=== PATIENT | female | born 1950 | race Caucasian/White ===

== ENCOUNTER → 2017-05-22 | Outpatient (CLI) | payer OTHER | LOC: FIMAGING 09:04 | DX: Z12.31 Encounter for screening mammogram for malignant neoplasm of breast (principal) | CPT/HCPCS: G0202 ==

== ENCOUNTER → 2018-01-22 | Outpatient (CLI) | payer OTHER | LOC: BHFA 15:00 | PROVIDERS: ATTEND Internal Medicine Cardiovascular Disease | DX: I48.91 Unspecified atrial fibrillation (principal); E78.5 Hyperlipidemia, unspecified; Z95.0 Presence of cardiac pacemaker; Z79.899 Other long term (current) drug therapy ==

== ENCOUNTER 2018-07-08 13:25 | Observation (INO) | payer OTHER ==
[2018-07-08] MEDS ORDERED: IOHEXOL 350mgI/ML (OMNIPAQUE) 150 ML BTL IV ONE (13:37)
--- NOTE | 2018-07-08 13:49 | EDPHY ---
H & P Stated Complaint: L arm numbness/L facial numbness upon waking up at 6am Time Seen by Provider: 07/08/18 13:36 HPI/ROS: CHIEF COMPLAINT: Left arm numbness, chest pressure HISTORY OF PRESENT ILLNESS: 68-year-old female with atrial fibrillation on Eliquis presents with left-sided numbness and chest pressure. She awoke at 6: 00 a.m. this morning with numbness in the left upper extremity. She stood up and went outside. She then had an episode of diaphoresis, associated with a tingling sensation down her left arm and in her left face. Her leg was not involved. In mid morning, she also had an episode of chest pressure of unknown duration, now resolved. Currently, she has numbness left side of mouth and left hand. No weakness. No prior history of TIA or CVA. REVIEW OF SYSTEMS: complete 10 point ROS reviewed and is negative except for the noted elements in the HPI Source: Patient - Personal History Current Tetanus Diphtheria and Acellular Pertussis (TDAP): Yes - Medical/Surgical History Hx Asthma: No Hx Chronic Respiratory Disease: No Hx Diabetes: No Hx Cardiac Disease: Yes Hx Renal Disease: No Hx Cirrhosis: No Hx Alcoholism: No Hx HIV/AIDS: No Hx Splenectomy or Spleen Trauma: No Other PMH: A-FIB, pacemaker - Social History Smoking Status: Never smoked Alcohol Use: Sober Drug Use: None Additional Social History: - Physical Exam Exam: General Appearance: Alert, pleasant and talkative Eyes: Pupils equal and round, no conjunctival pallor or injection ENT, Mouth: Mucous membranes moist Neck: Normal inspection Respiratory: Lungs are clear to auscultation Cardiovascular: Regular rate and rhythm Gastrointestinal: Abdomen is soft and nontender Neurological: Alert, oriented x3, cranial nerves II through XII intact, motor 5 /5, sensory intact to light touch Skin: Warm and dry Extremities: Nontender, no pedal edema Psychiatric: Mood and affect normal Constitutional: Initial Vital Signs Temperature (C) 36.8 C 07/08/18 13:36 Heart Rate 80 07/08/18 13:36 Respiratory Rate 20 07/08/18 13:36 Blood Pressure 185/95 H 07/08/18 13:36 O2 Sat (%) 96 07/08/18 13:36 O2 Delivery Mode Room Air Allergies/Adverse Reactions: amoxicillin [Amoxicillin] Allergy (Mild, Verified 06/28/10 09:57) Rash NUTS Allergy (Intermediate, Uncoded 06/28/10 09:57) Hives HAYFEVER Allergy (Mild, Uncoded 06/28/10 09:57) SNEEZING Home Medications: Medication Instructions Recorded Apixaban [Eliquis] 5 mg PO BID 07/08/18 Cholecalciferol (Vitamin D3) 5,000 unit PO DAILY 07/08/18 [Vitamin D3] Omeprazole 40 mg PO DAILY 07/08/18 Rosuvastatin Calcium [Crestor 40mg 40 mg PO HS 07/08/18 (*)] Sotalol HCl [Sotalol] 80 mg PO BID 07/08/18 Medical Decision Making - Diagnostics EKG Interpretation: EKG interpreted by me reveals an AV dual paced rhythm, rate 82. Interpretation: Abnormal EKG Imaging Results: Imaging Impressions Head CT 07/08/18 13:35 Impression: 1. Negative. No acute intracranial hemorrhage or evidence of acute cortical ischemia. 2. Mild chronic right maxillary sinus disease. Findings discussed with Emergency Department physician, Dr. Heidi Garcia on July 08, 2018 at 1401 hours. Head CTA 07/08/18 13:35 Impression: Normal intravenous circulation. No evidence of embolic disease or aneurysm. CT Angiogram Neck: The cervicothoracic aorta is normal caliber and gives rise to normal four-vessel neck anatomy. Bilateral common carotid arteries, carotid bulbs, internal and external carotid arteries are all widely patent. No plaque, flow-limiting stenosis, dissection, or occlusion. Bilateral vertebral arteries are widely patent. The dominant right vertebral artery is the primary feeding vessel to the basilar artery and posterior circulation. The small caliber left vertebral artery tapers into the posterior inferior cerebellar artery. CT Neck:The lung apices are clear except for mild diffuse peribronchial thickening. No enlarged lymph node or neck mass. Moderate multilevel degenerative disk and facet arthropathy is worse at the C4-C5 and C5-C6 levels. A left anterior chest wall pacemaker is in place. No stenosis of the left brachiocephalic vein. Impression: 1. Widely patent carotid and vertebral arteries. 2. No lymphadenopathy, mass, or acute process. Measurement of carotid stenosis is based on the residual internal carotid diameter with [place] Symptomatic Carotid Endarterectomy Trial (NASCET) based stenosis levels. Findings discussed with Emergency Department physician, Heidi Garcia on 2018, 14:22. Neck CTA 07/08/18 13:35 Impression: Normal intravenous circulation. No evidence of embolic disease or aneurysm. CT Angiogram Neck: The cervicothoracic aorta is normal caliber and gives rise to normal four-vessel neck anatomy. Bilateral common carotid arteries, carotid bulbs, internal and external carotid arteries are all widely patent. No plaque, flow-limiting stenosis, dissection, or occlusion. Bilateral vertebral arteries are widely patent. The dominant right vertebral artery is the primary feeding vessel to the basilar artery and posterior circulation. The small caliber left vertebral artery tapers into the posterior inferior cerebellar artery. CT Neck:The lung apices are clear except for mild diffuse peribronchial thickening. No enlarged lymph node or neck mass. Moderate multilevel degenerative disk and facet arthropathy is worse at the C4-C5 and C5-C6 levels. A left anterior chest wall pacemaker is in place. No stenosis of the left brachiocephalic vein. Impression: 1. Widely patent carotid and vertebral arteries. 2. No lymphadenopathy, mass, or acute process. Measurement of carotid stenosis is based on the residual internal carotid diameter with [place] Symptomatic Carotid Endarterectomy Trial (NASCET) based stenosis levels. Findings discussed with Emergency Department physician, Heidi Garcia on 2018, 14:22. Imaging: Discussed imaging studies w/ supervisor cereal Radiologist ED Course/Re-evaluation: This patient presents with left-sided paresthesias, concerning for CVA. Onset of symptoms at 0600 and she is on Eliquis. NIH score 1. She is not an IV tPA candidate. She was sent to CT for CT/CTA of the head and neck. CT/CTA negative and results discussed with the patient. She continues to have left- sided paresthesias. Repeat neurologic exam is unchanged. She will need to be admitted for further evaluation of possible CVA/TIA. Pt unable to have an MRI because she has a pacemaker that is not MRI compatible. She also had an episode of cp this am, EKG paced rhythm, initial troponin normal, will need serial troponins to evaluate for possible acute coronary syndrome. The hospitalist service was consulted for admission. Differential Diagnosis: Altered mental status including but not limited to hypoglycemia, infectious process, electrolyte abnormality, head injury, CVA, and intoxicants. - Data Points Laboratory Results: Laboratory Results 07/08/18 13:35 07/08/18 13:35 07/08/18 07/08/18 07/08/18 13:44 13:41 13:35 WBC RBC Hgb POC Hgb 16.0 gm/dL gm/dL (12.6-16.3) Hct POC Hct 47 % % (38-47) MCV MCH MCHC RDW Plt Count MPV Neut % (Auto) Lymph % (Auto) [place] % (Auto) Eos % (Auto) Baso % (Auto) Nucleat RBC Rel Count Absolute Neuts (auto) Absolute Lymphs (auto) Absolute Monos (auto) Absolute Eos (auto) Absolute Basos (auto) Absolute Nucleated RBC Immature Gran % Immature Gran # POC Sodium 144 mEq/L mEq/L (135-145) Sodium 141 mEq/L mEq/L (135-145) POC Potassium 3.7 mEq/L mEq/L (3.3-5.0) Potassium 3.9 mEq/L mEq/L (3.5-5.2) POC Chloride 104 mEq/L mEq/L (97-110) Chloride 106 mEq/L mEq/L (97-110) Carbon Dioxide 25 mEq/l mEq/l (22-31) POC Total CO2 27 mEq/L mEq/L (22-31) Anion Gap 10 mEq/L mEq/L (6-14) POC BUN 10 mg/dL mg/dL (7-23) BUN 12 mg/dL mg/dL (7-23) Creatinine 0.6 mg/dL mg/dL (0.6-1.0) POC Creatinine 0.7 mg/dL mg/dL (0.6-1.0) Estimated GFR > 60 Glucose 96 mg/dL mg/dL (70-100) POC Glucose 100 mg/dL mg/dL (70-100) Calcium 9.1 mg/dL mg/dL (8.5-10.4) Total Bilirubin 0.6 mg/dL mg/dL (0.1-1.4) AST 32 IU/L IU/L (14-46) ALT 41 IU/L IU/L (9-52) Alkaline Phosphatase 101 IU/L IU/L (38-126) POC Troponin I 0.00 ng/mL ng/mL (0.00-0.08) Total Protein 6.8 g/dL g/dL (6.3-8.2) Albumin 4.3 g/dL g/dL (3.5-5.0) 07/08/18 13:35 WBC 8.60 10^3/uL 10^3/uL (3.80-9.50) RBC 5.21 10^6/uL 10^6/uL (4.18-5.33) Hgb 15.0 g/dL g/dL (12.6-16.3) POC Hgb Hct 46.0 % % (38.0-47.0) POC Hct MCV 88.3 fL fL (81.5-99.8) MCH 28.8 pg pg (27.9-34.1) MCHC 32.6 g/dL g/dL (32.4-36.7) RDW 13.4 % % (11.5-15.2) Plt Count 166 10^3/uL 10^3/uL (150-400) MPV 9.8 fL fL (8.7-11.7) Neut % (Auto) 49.6 % % (39.3-74.2) Lymph % (Auto) 42.0 % % (15.0-45.0) [place] % (Auto) 6.2 % % (4.5-13.0) Eos % (Auto) 1.3 % % (0.6-7.6) Baso % (Auto) 0.8 % % (0.3-1.7) Nucleat RBC Rel Count 0.0 % % (0.0-0.2) Absolute Neuts (auto) 4.27 10^3/uL 10^3/uL (1.70-6.50) Absolute Lymphs (auto) 3.61 10^3/uL H 10^3/uL (1.00-3.00) Absolute Monos (auto) 0.53 10^3/uL 10^3/uL (0.30-0.80) Absolute Eos (auto) 0.11 10^3/uL 10^3/uL (0.03-0.40) Absolute Basos (auto) 0.07 10^3/uL 10^3/uL (0.02-0.10) Absolute Nucleated RBC 0.00 10^3/uL 10^3/uL (0-0.01) Immature Gran % 0.1 % % (0.0-1.1) Immature Gran # 0.01 10^3/uL 10^3/uL (0.00-0.10) POC Sodium Sodium POC Potassium Potassium POC Chloride Chloride Carbon Dioxide POC Total CO2 Anion Gap POC BUN BUN Creatinine POC Creatinine Estimated GFR Glucose POC Glucose Calcium Total Bilirubin AST ALT Alkaline Phosphatase POC Troponin I Total Protein Albumin Point of Care Test Results: Chemistry 07/08/18 07/08/18 13:44 13:41 POC Sodium 144 mEq/L mEq/L (135-145) POC Potassium 3.7 mEq/L mEq/L (3.3-5.0) POC Chloride 104 mEq/L mEq/L (97-110) POC Total CO2 27 mEq/L mEq/L (22-31) POC BUN 10 mg/dL mg/dL (7-23) POC Creatinine 0.7 mg/dL mg/dL (0.6-1.0) POC Glucose 100 mg/dL mg/dL (70-100) POC Troponin I 0.00 ng/mL ng/mL (0.00-0.08) ISTAT H&H 07/08/18 13:44 POC Hgb 16.0 gm/dL gm/dL (12.6-16.3) POC Hct 47 % % (38-47) Departure - Departure Disposition: [facility] Inpatient Acute Clinical Impression: Paresthesia Condition: Fair
[2018-07-08 14:08] LABS: PLATELET COUNT 166 10^3/uL (150-400)
[2018-07-08] MEDS ORDERED: ONDANSETRON 4 MG/2 ML VIAL IVP PRN (14:34)
[2018-07-08] MEDS ORDERED: ONDANSETRON DISINTEGRATING 4 MG TAB PO PRN (14:34)
[2018-07-08] MEDS ORDERED: ACETAMINOPHEN 325 MG TAB PO PRN (14:34)
--- NOTE | 2018-07-08 15:27 | PDGENHP ---
History and Physical - Chief Complaint L sided numbness - History of Present Illness Марина Leahy is a 68 yo F with a PMHx of A Fib s/p PPM on Elaquis who presents to ED for L sided numbness. She reports that when she awoke at 6 AM this morning she had numbness running from her L shoulder to her L hand including fingers. This lasted for <5 minutes then resolved. She reports she has felt lethargic since that event and has had persistent L sided facial numbness around the L corner of her mouth. She denies any lower extremity symptoms, weakness, visual changes, LOC, LH/dizziness, dysarthria. She also reports that she had an episode of chest pressure for an unknown duration that has since resolved. She denies any palpitations, edema, n/v. History Information - Allergies/Home Medication List Allergies/Adverse Reactions: amoxicillin [Amoxicillin] Allergy (Mild, Verified 06/28/10 09:57) Rash NUTS Allergy (Intermediate, Uncoded 06/28/10 09:57) Hives HAYFEVER Allergy (Mild, Uncoded 06/28/10 09:57) SNEEZING Home Medications: Apixaban [Eliquis] 5 mg PO BID 07/08/18 [Last Taken 07/08/18] Cholecalciferol (Vitamin D3) [Vitamin D3] 5,000 unit PO DAILY 07/08/18 [Last Taken 07/08/18] Omeprazole 40 mg PO DAILY 07/08/18 [Last Taken 07/08/18] Rosuvastatin Calcium [Crestor 40mg (*)] 40 mg PO HS 07/08/18 [Last Taken ] Sotalol HCl [Sotalol] 80 mg PO BID 07/08/18 [Last Taken 07/08/18] I have personally reviewed and updated: family history, medical history, social history, surgical history - Past Medical History atrial fibrillation, hyperlipidemia - Surgical History Reports: ablation, pacemaker/AICD - Family History Positive for: non-pertinent - Social History Smoking Status: Never smoked Alcohol Use: Sober Drug Use: None Review of Systems Review of Systems: ROS: 10pt was reviewed & negative except for what was stated in HPI & below Physical Exam Physical Exam: Temp Pulse Resp BP Pulse Ox 36.8 C 80 20 185/95 H 96 07/08/18 13:36 07/08/18 13:36 07/08/18 13:36 07/08/18 13:36 07/08/18 13:36 Constitutional: no apparent distress Eyes: PERRL Ears, Nose, Mouth, Throat: moist mucous membranes Cardiovascular: irregularly irregular, No tachycardia Respiratory: no respiratory distress, clear to auscultation Gastrointestinal: soft, non-tender abdomen Skin: warm Musculoskeletal: full muscle strength Neurologic: AAOx3, sensation intact bilaterally, CN II-XII Intact, No weakness Psychiatric: interacting appropriately Lab Data & Imaging Review 07/08/18 13:35 07/08/18 13:35 WBC 8.60 10^3/uL (3.80-9.50) 07/08/18 13:35 RBC 5.21 10^6/uL (4.18-5.33) 07/08/18 13:35 Hgb 15.0 g/dL (12.6-16.3) 07/08/18 13:35 POC Hgb 16.0 gm/dL (12.6-16.3) 07/08/18 13:44 Hct 46.0 % (38.0-47.0) 07/08/18 13:35 POC Hct 47 % (38-47) 07/08/18 13:44 MCV 88.3 fL (81.5-99.8) 07/08/18 13:35 MCH 28.8 pg (27.9-34.1) 07/08/18 13:35 MCHC 32.6 g/dL (32.4-36.7) 07/08/18 13:35 RDW 13.4 % (11.5-15.2) 07/08/18 13:35 Plt Count 166 10^3/uL (150-400) 07/08/18 13:35 MPV 9.8 fL (8.7-11.7) 07/08/18 13:35 Neut % (Auto) 49.6 % (39.3-74.2) 07/08/18 13:35 Lymph % (Auto) 42.0 % (15.0-45.0) 07/08/18 13:35 [place] % (Auto) 6.2 % (4.5-13.0) 07/08/18 13:35 Eos % (Auto) 1.3 % (0.6-7.6) 07/08/18 13:35 Baso % (Auto) 0.8 % (0.3-1.7) 07/08/18 13:35 Nucleat RBC Rel Count 0.0 % (0.0-0.2) 07/08/18 13:35 Absolute Neuts (auto) 4.27 10^3/uL (1.70-6.50) 07/08/18 13:35 Absolute Lymphs (auto) 3.61 10^3/uL (1.00-3.00) H 07/08/18 13:35 Absolute Monos (auto) 0.53 10^3/uL (0.30-0.80) 07/08/18 13:35 Absolute Eos (auto) 0.11 10^3/uL (0.03-0.40) 07/08/18 13:35 Absolute Basos (auto) 0.07 10^3/uL (0.02-0.10) 07/08/18 13:35 Absolute Nucleated RBC 0.00 10^3/uL (0-0.01) 07/08/18 13:35 Immature Gran % 0.1 % (0.0-1.1) 07/08/18 13:35 Immature Gran # 0.01 10^3/uL (0.00-0.10) 07/08/18 13:35 POC Sodium 144 mEq/L (135-145) 07/08/18 13:44 Sodium 141 mEq/L (135-145) 07/08/18 13:35 POC Potassium 3.7 mEq/L (3.3-5.0) 07/08/18 13:44 Potassium 3.9 mEq/L (3.5-5.2) 07/08/18 13:35 POC Chloride 104 mEq/L (97-110) 07/08/18 13:44 Chloride 106 mEq/L (97-110) 07/08/18 13:35 Carbon Dioxide 25 mEq/l (22-31) 07/08/18 13:35 POC Total CO2 27 mEq/L (22-31) 07/08/18 13:44 Anion Gap 10 mEq/L (6-14) 07/08/18 13:35 POC BUN 10 mg/dL (7-23) 07/08/18 13:44 BUN 12 mg/dL (7-23) 07/08/18 13:35 Creatinine 0.6 mg/dL (0.6-1.0) 07/08/18 13:35 POC Creatinine 0.7 mg/dL (0.6-1.0) 07/08/18 13:44 Estimated GFR > 60 07/08/18 13:35 Glucose 96 mg/dL (70-100) 07/08/18 13:35 POC Glucose 100 mg/dL (70-100) 07/08/18 13:44 Calcium 9.1 mg/dL (8.5-10.4) 07/08/18 13:35 POC Troponin I 0.00 ng/mL (0.00-0.08) 07/08/18 13:41 Assessment & Plan Assessment: TIA (Acute) - Patient with transient L sided UE numbness for <5 minutes this AM - Only persistent symptom is numbness around L corner of mouth which is mild per patient - CTA/CT Head performed with no acute abnormality - Hx of A Fib, currently on Eliquis - MRI Brain ordered by ED, patient does have PPM - Neurology consult placed - Continue home Crestor, Elaquis - Will check Lipid Panel (already on statin), A1c - PT/OT ordered - TTE with bubble study ordered Chest Pressure - Unclear duration this morning - Non-radiating, not clear association with L sided numbness - Initial EKG, Trop negative on admission - Will order chest pain protocol with serial troponins, EKG Hx A Fib - S/p PPM, on Elaquis - Continue home Sotalol - 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
--- NOTE | 2018-07-08 17:27 | ECHO ---
[email or web address] [address] [address] Main: [phone] Fax: Transthoracic Echocardiogram Name: PRABHAKAR NICOLE MR#: [id number] Study Date: 07/08/2018 Study Time: 02:57 PM Date of : 1950 Age: 68 year(s) Height: 162.6 cm (64 in.) Weight: 86.18 kg (190 lb.) BSA: 1.91 m2 Gender: Female Examination: Complete Echo with Agitated Saline Indication: TIA, Hx of Pacemaker Image Quality: Contrast: Requested by: Lester Le BP: 139 mmHg/84 mmHg Heart Rate: Rhythm: Tachycardia Indication: TIA, Hx of Pacemaker Procedure Staff Computer Applications Engineer: Michael Adamson RDCS Reading Physician: Rogelio Pérez MD Requesting Provider: Conclusions: Normal global systolic LV function. EF is 68 %. An agitated saline study was performed and was negative for intracardiac shunting. The mitral valve is normal in appearance and function. The aortic valve is tri-leaflet. Measurements: Chambers Valvular Assessment AV/MV Valvular Assessment TV/PV Normal Normal Normal Name Value Range Name Value Range Name Value Range Ao Shayna (MM): 2.2 cm (2.2 cm-3.7 AV Vmax: 1.11 m/s (1 m/s-1.7 TR Vmax: 2.38 mm/s ( - ) cm) m/s) TR PGmax: 23 mmHg ( - ) IVSd (2D): 1.1 cm (0.6 cm-1.1 AV maxP mmHg ( - ) syst. PAP: 28 mmHg ( - ) cm) LVOT Vmax: 0.89 m/s (0.7 m/s-1.1 PV Vmax: 0.99 m/s (0.6 m/s-0.9 LVDd (2D): 4.5 cm (3.9 cm-5.3 m/s) m/s) cm) MV E Vmax: 0.42 m/s ( - ) PV PGmax: 4 mmHg ( - ) LVDs (2D): 2.8 cm (2.1 cm-4 MV A Vmax: 0.85 m/s ( - ) cm) MV E/A: 0.49 ( - ) LVPWd (2D): 1.0 cm ( - ) LVEF (2D): 68 (>=54 %) Continued Measurements: Chambers Valvular Assessment AV/MV Valvular Assessment TV/PV Name Value Name Value Name Value LADs Lon.2 cm MV E' Septal: 0.09 m/s CVP (est.): 5 mmHg LA Area: 12.0 cm2 MV E/E' Septal: 4.80 LA Volume: 26 ml MV E/E' Lateral: 8.10 LA Volume Index: 13.6 ml/m2 Patient: PRABHAKAR NICOLE Study Date: 07/08/2018 Page 1 of 2 02:57 PM Findings: Left Ventricle: Normal size left ventricle. No LV hypertrophy. Normal global systolic LV function. EF is 68 %. No regional wall motion abnormality. Diastolic dysfunction is present. . Right Ventricle: Normal size right ventricle. There is a pacemaker lead noted in the right ventricle. Left Atrium: The left atrium is normal in size. An agitated saline study was performed and was negative for intracardiac shunting. Right Atrium: The right atrium is normal in size. Mitral Valve: The mitral valve is normal in appearance and function. There is no significant mitral valve regurgitation. No mitral stenosis is present. Aortic Valve: The aortic valve is tri-leaflet. The aortic valve is normal in appearance. There is no aortic valve regurgitation. Tricuspid Valve: The tricuspid valve is normal in appearance and function. Pulmonic Valve: The pulmonic valve is normal in appearance and function. Aorta: The aorta is normal. Pericardium: No pericardial effusion. (No Signature Object) Patient: PRABHAKAR NICOLE Study Date: 07/08/2018 Page 2 of 2 02:57 PM [id number]
[2018-07-08] MEDS ORDERED: ROSUVASTATIN CALCIUM 40 MG TAB PO SCH (21:00)
[2018-07-08] MEDS: APIXABAN 5 MG TAB PO SCH (21:26)
[2018-07-08] MEDS: SOTALOL HCL 80 MG TAB PO SCH (21:26)
--- NOTE | 2018-07-09 08:43 | HOSPPROG ---
Hospitalist Progress Note Assessment/Plan: Марина Leahy is a 68 yo F with a PMHx of A Fib s/p PPM on who presents to ED for L sided numbness. First encounter, chart reviewed. TIA, neurologic episode - Patient with transient L sided UE numbness for <5 minutes -she had slept on her left side which was unusual for her - CTA/CT Head performed with no acute abnormality - unable to do MRI due to pacer - Hx of A Fib, currently on Eliquis - echo shows no intracardiac shunting - LDL is 47 -reviewed her telemetry monitoring, she is v paced and av paced Chest Pressure -trop neg x 2 Hx A Fib - S/p PPM, on Eliquis & sotalol - Dr. Estevez as outpatient line rider HLD - Continue home Crestor GERD - Continue home PPI *plan: dc after neurology and therapies see her, cards knows about her admission. Subjective: Марина has no complaints, feeling fine. Objective: Vital Signs Temp Pulse Resp BP Pulse Ox 37.1 C 79 15 125/71 H 92 07/09/18 07:53 07/09/18 07:53 07/09/18 07:53 07/09/18 07:53 07/09/18 07:53 07/08/18 07/09/18 07/10/18 05:59 05:59 05:59 Intake Total 1200 Balance 1200 - Physical Exam Constitutional: no apparent distress, appears nourished, not in pain Eyes: PERRL Ears, Nose, Mouth, Throat: hearing normal Cardiovascular: regular rate and rhythym Skin: warm Musculoskeletal: full muscle strength Neurologic: AAOx3, CN II-XII Intact, No pronator drift, No facial droop Psychiatric: interacting appropriately, not anxious ICD10 Worksheet Patient Problems: Problems Problem Status Onset Paresthesia Acute
[2018-07-09] MEDS ORDERED: CHOLECALCIFEROL VIT D3 2,000 UNITS TAB/CAP PO SCH (09:00)
[2018-07-09] MEDS ORDERED: ATORVASTATIN CALCIUM 40 MG TAB PO SCH (09:00)
[2018-07-09] MEDS ORDERED: PANTOPRAZOLE SODIUM 40 MG TAB PO SCH (09:00)
[2018-07-09] MEDS ORDERED: ASPIRIN 81 MG CHEWABLE TAB PO SCH (09:00)
--- NOTE | 2018-07-09 09:36 | ASMTCMCOM ---
CM Note CM Note Notes: Pt is a 68 y/o female admitted for left paresthesis. Pt will most likely d/c independent when medically stable. Neurology has been consulted. CM available for changes. Plan: Independent Date Signed: 07/09/2018 09:36 AM Electronically Signed By:KATY Galeana
[2018-07-09] MEDS: APIXABAN 5 MG TAB PO SCH (10:22)
[2018-07-09] MEDS: SOTALOL HCL 80 MG TAB PO SCH (10:23)
--- NOTE | 2018-07-09 11:05 | GCON ---
[f rep st] CONSULTATION REFERRING PHYSICIAN: Lester Le DO HISTORY: The patient is a 68-year-old woman whom I am asked to see in neurologic consultation regard ing episode, yesterday, of abnormal sensations affecting the face and arm. Around 6 AM, she was awar e of a tingling or numb feeling in the left upper extremity that did not feel as if it was coming fro m her neck but from the hand all the way to the level of her shoulder. Her estimate is this was reso lving after about 5 minutes. By around 10 AM, she recognized that she was also having a feeling of n umbness, like anesthesia, in the left side of her face. That has become less but not fully resolved. She came to the Emergency Room for evaluation and underwent head CT and CT angiogram of the head an d neck which did not show any evidence of an acute hemorrhage or acute stroke. The CT angiogram of t he neck did not show any hemodynamically significant stenoses. Posterior circulation is intact. No intracranial stenoses of significance. She is already on Eliquis. Overnight, she has been stable, and she says that she still has some mild perception of abnormal sens ation in the left face but nothing else. No smoking, no alcohol, no drug use. PAST MEDICAL HISTORY: She has a history of ablation with atrial fibrillation and has pacemaker and A ICD. Hyperlipidemia. FAMILY HISTORY: Noncontributory. At home she was on Eliquis, sotalol, Crestor, omeprazole. The patient had an echocardiogram as well. Left ejection fraction was normal. No evidence of a PFO. No evidence of a specific embolic source. ALLERGIES: She has an allergy to amoxicillin. MEDICATIONS: Currently, she is on Eliquis, vitamin D, Crestor and sotalol. REVIEW OF SYSTEMS: She denies fever, chills, nausea, vomiting or diarrhea. Otherwise, negative 10-p oint review of systems. OBJECTIVE: VITAL SIGNS: Blood pressure is 136/84, pulse of 78, respirations 15, temperature 37.1. NECK: Supple with no bruits or masses. CARDIAC: Regular rate and rhythm. No murmur. NEUROLOGIC: She is alert and attentive with clear, fluent speech and oriented to person, place and time. No cog nitive impairment. Language is fluent. Pupils 3 mm and reactive. Extraocular movements are intact. She has normal facial movement and strength but relatively decreased left facial sensation for temp erature and light touch. Palate elevates symmetrically. Tongue protrudes midline. Hearing is prese rved. MOTOR EXAM: Normal muscle bulk and tone, 5/5 strength with no abnormal movements. Sensation is preserved for temperature and light touch throughout the extremities. Reflexes are 1+. IMPRESSION: Patient total unit time 55 minutes. She has experienced acute development of neurologic symptoms in the left arm and face, and the left face has now almost resolved but not fully, and subj ectively, still feels abnormal when I examine her but no deficits in the left arm. She probably expe rienced a very small stroke. We do not have the ability to do an MRI, but that does not change our m anagement strategies or any other diagnostic workup. She does not have large vessel occlusion or mike ar embolic source, and she is on the Eliquis for a history of atrial fibrillation. She has an NIH st roke scale of 1. I think it is safe for her to be discharged and follow up with me as an outpatient as needed. She will continue to followup with Cardiology and her primary care. /[id number]
--- NOTE | 2018-07-09 11:48 | CPEKG ---
Test Reason : OPEN Blood Pressure : / mmHG Vent. Rate : 076 BPM Atrial Rate : 077 BPM P-R Int : 183 ms QRS Dur : 147 ms QT Int : 432 ms P-R-T Axes : 036 -69 085 degrees QTc Int : 486 ms Atrial-ventricular dual-paced rhythm Confirmed by Paddy Dai ([id number]) on 07/09/2018 11:48:10 AM Referred By: Lester Le Confirmed By:Paddy Dai
[2018-07-09 11:51] VITALS: BP 125/75
--- NOTE | 2018-07-09 14:11 | GDS ---
[f rep st] DISCHARGE SUMMARY DISCHARGE DIAGNOSES: 1. Small stroke. Initial concern was a transient ischemic attack. 2. Chest pressure. 3. History of atrial fibrillation. 4. Hyperlipidemia. 5. Gastroesophageal reflux disease. CONSULTATION: Dr. Jani Pillai. HISTORY OF PRESENT ILLNESS: Briefly, the patient is a very nice 68-year-old woman with a history of atrial fibrillation with an ablation, has a pacemaker and an AICD, as well as hyperlipidemia. She noted yesterday that she was having some tingling or numb feeling in her left upper extremity. She also had some numbness on the left side of her face, which all has resolved. She came to the emergency room for further evaluation, underwent a head CT and CT angiogram of the head and neck. None of these showed any evidence of acute hemorrhage or acute stroke. The CT angiogram of the neck did not show any hemodynamically significant stenosis. She is anticoagulated. She was on unable to have an MRI performed due to having a pacemaker. She was seen and evaluated by Neurology. Their impression is that her symptoms were likely a small stroke. Her NIH Stroke Scale is 1. She will be discharged and follow up with Dr. Pillai in the outpatient setting. I have also spoken with Cardiology. They are aware of the patient's admission and Dr. Pillai' diagnosis of a stroke. HOSPITAL COURSE PER PROBLEM: 1. Small stroke. LDL is low. An echocardiogram with bubble study was performed. This did not show any type of intracardiac shunting. Reviewed her newspaper stuffer. She is V paced and at times AV paced. 2. Chest pressure. No complaints of this today. Troponin were negative x2. 3. History of atrial fibrillation. She is status post a permanent pacemaker. She is on Eliquis and sotalol. I have asked LEEROY Rey to update Dr. Estevez of the patient's admission. 4. Hyperlipidemia. Continue home Crestor. 5. GERD, on PPI. DISCHARGE CONDITION: Stable. Blood pressure is 125/75, heart rate of 81, respiratory rate of 18, O2 sats on room air 94%, temperature 37.1 Celsius. DISCHARGE MEDICATIONS: Please see the EMR. DISCHARGE INSTRUCTIONS: 1. If she has any stroke symptoms, return to the ER. 2. Talk to Dr. Pillai if he would consider adding aspirin in this setting. 3. Followup with Dr. Estevez in addition. /[id number]/MODL MTDD
== END 2018-07-09 14:38 | disposition home or self-care (01) ==
LOC: F3N 16:00
PROVIDERS: ADMIT Internal Medicine; ATTEND Internal Medicine
DX: I63.9 Cerebral infarction, unspecified (principal); R07.89 Other chest pain; E78.5 Hyperlipidemia, unspecified; K21.9 Gastro-esophageal reflux disease without esophagitis
CPT/HCPCS: 70450; 70496; 70498; 92523; 93005; 93306; 99285; G0378; Q9967; 82435-PO; 82565-PO; 82947-PO; 84132-PO; 84295-PO; 84484-ER; 84520-PO; 85014-ER